=== PATIENT | female | born 1950 | race Caucasian/White ===

== ENCOUNTER → 2017-07-03 | Outpatient (CLI) | payer MEDICARE ==
[~2017-07-03] MED LIST: ARIP10TA2 PO; ATR20T PO; CIPR-17 PO; LVT.1T PO; METR500T PO; OXYC-12 PO; RLX60T PO; VENL150C53 PO; VNL75CCR PO
== END ==
LOC: RAD 09:32
PROVIDERS: ATTEND Internal Medicine
DX: Z12.31 Encounter for screening mammogram for malignant neoplasm of breast (principal)
CPT/HCPCS: 77067

== ENCOUNTER 2017-12-24 05:38 | Outpatient (CLI) | payer MEDICARE ==
[~2017-12-24] VITALS: Ht 165.1 cm; Wt 77.1 kg
[2017-12-24] MEDS ORDERED: LEVO100T7 PO (13:55)
[2017-12-24] MEDS ORDERED: CITA10TA7 PO (13:58)
[2017-12-24] MEDS ORDERED: LEVO5TAB28 PO (14:29)
[2017-12-24] MEDS ORDERED: CA C1TAB75 PO (14:29)
[2017-12-24] MEDS ORDERED: OMEG100032 PO (14:29)
[2017-12-24] MEDS ORDERED: FENO145T20 PO (14:29)
[2017-12-24] MEDS ORDERED: CHOL100045 PO (14:29)
== END 2017-12-24 14:31 ==
LOC: PREOP 05:38
PROVIDERS: ATTEND Specialist
DX: Z01.818 Encounter for other preprocedural examination (principal); H25.11 Age-related nuclear cataract, right eye

== ENCOUNTER 2017-12-28 07:59 | Day surgery (SDC) | payer MEDICARE ==
[~2017-12-28] VITALS: Ht 165.1 cm; Wt 77.1 kg
[~2017-12-28 07:59] MED LIST changes: +CA C1TAB75 PO; +CHOL100045 PO; +CITA10TA7 PO; +FENO145T20 PO; +LEVO100T7 PO; +LEVO5TAB28 PO; +OMEG100032 PO
[2017-12-28] MEDS ORDERED: POVIDONE (BETADINE) OPHTH SOLN 5% 30 ML OP ONE (08:15)
[2017-12-28] MEDS ORDERED: TIMOLOL MALEATE 0.5% 5 ML (TIMOPTIC) BTL OU PRN (08:15)
[2017-12-28] MEDS ORDERED: VANCOMYCIN/BSS (COMPOUNDED) 10 MG/ML SYR OP ONE (08:15)
[2017-12-28] MEDS ORDERED: LIDOCAINE PF 1% 2 ML AMP IR PRN (08:15)
[2017-12-28] MEDS ORDERED: EPINEPHrine INJECTION 1 MG/ML AMP INJ ONE (08:15)
[2017-12-28 08:20] VITALS: BP 105/72
[2017-12-28] MEDS: TETRACAINE 0.5% OPHTH SOLN 4 ML BTL (SINGLE DOSE ONLY) OU PRN ×4 (08:30→08:50)
[2017-12-28] MEDS: PHENYLEPHRINE 10% OPHTH (NEO-SYN) 5 ML BTL OU SCH ×3 (08:37→08:50)
[2017-12-28] MEDS: CYCLOPENTOLATE 1% (CYCLOGYL) 2 ML DROPS OP SCH ×3 (08:37→08:50)
[2017-12-28] MEDS ORDERED: MIDAZOLAM 2 MG/2 ML (VERSED) VIAL ONE (09:15)
--- NOTE | 2017-12-28 09:42 | Ophthalmology Operative Report ---
Cataract removal/placement IOL PREOPERATIVE DIAGNOSIS: Cataract Right Eye POSTOPERATIVE DIAGNOSIS: Cataract Right Eye PROCEDURE: Cataract removal and placement of posterior chamber implant, right eye SURGEON: Kaz Robles ANESTHESIA: Topical with sedation COMPLICATIONS: None ESTIMATED BLOOD LOSS: Minimal DESCRIPTION OF PROCEDURE: After proper informed consent was obtained, the patient, a 67 female, was taken to the Operating Room and the right eye was anesthetized with tetracaine. They right eye was then prepped and draped in the usual manner. A wire lid speculum was placed. A paracentesis was made at the left hand position. Preservative free lidocaine was injected into the anterior chamber followed by viscoelastic. A clear corneal incision was made in the temporal position. A capsulorrhexis was preformed and the central nuclear and cortical material were removed. The posterior capsule was polished and an Ihsan [id number] 21.0 IOL was placed into the capsular bag. The residual viscoelastic was aspirated and balanced saline solution was injected into the anterior chamber. 1.0 ml of Vancomycin (10mg/ 1.0ml) was injected into the anterior chamber. The would was checked and found to be water tight. The patient tolerated the procedure well without complications. KAZ ROBLES MD Dec 28, 2017 09:42
[2017-12-28 09:50] VITALS: BP 128/73
== END 2017-12-28 09:50 | disposition home or self-care (01) ==
LOC: SDC 07:59
PROVIDERS: ATTEND Specialist
DX: H26.9 Unspecified cataract (principal); E78.00 Pure hypercholesterolemia, unspecified; E07.9 Disorder of thyroid, unspecified; Z87.891 Personal history of nicotine dependence; Z79.899 Other long term (current) drug therapy

== ENCOUNTER 2018-01-04 13:00 | Outpatient (CLI) | payer MEDICARE | END 2018-01-04 15:03 | LOC: PREOP 13:00 | PROVIDERS: ATTEND Specialist | DX: Z01.818 Encounter for other preprocedural examination (principal); H25.89 Other age-related cataract ==

== ENCOUNTER 2018-01-11 07:05 | Day surgery (SDC) | payer MEDICARE ==
[~2018-01-11] VITALS: Ht 165.1 cm; Wt 77.1 kg
[2018-01-11] MEDS ORDERED: POVIDONE (BETADINE) OPHTH SOLN 5% 30 ML OP ONE (07:30)
[2018-01-11] MEDS ORDERED: VANCOMYCIN/BSS (COMPOUNDED) 10 MG/ML SYR OP ONE (07:30)
[2018-01-11] MEDS ORDERED: EPINEPHrine INJECTION 1 MG/ML AMP INJ ONE (07:30)
[2018-01-11] MEDS ORDERED: TIMOLOL MALEATE 0.5% 5 ML (TIMOPTIC) BTL OU PRN (07:30)
[2018-01-11] MEDS ORDERED: LIDOCAINE PF 1% 2 ML AMP IR PRN (07:30)
[2018-01-11 07:42] VITALS: BP 139/78
[2018-01-11] MEDS: CYCLOPENTOLATE 1% (CYCLOGYL) 2 ML DROPS OP SCH ×3 (07:43→07:56)
[2018-01-11] MEDS: PHENYLEPHRINE 10% OPHTH (NEO-SYN) 5 ML BTL OU SCH ×3 (07:43→07:56)
[2018-01-11] MEDS: TETRACAINE 0.5% OPHTH SOLN 4 ML BTL (SINGLE DOSE ONLY) OU PRN ×4 (07:43→08:25)
--- NOTE | 2018-01-11 08:16 | Progress Note-Pre Operative ---
Pre-Operative Progress Note H&P Reviewed The H&P was reviewed, patient examined and no changes noted. Date Seen by Provider: Jan 11, 2018 Time Seen by Provider: 08:15 Date H&P Reviewed: Jan 11, 2018 Time H&P Reviewed: 08:16 Pre-Operative Diagnosis: cataract CHERYLE ROBLES MD Jan 11, 2018 08:16
[2018-01-11] MEDS ORDERED: MIDAZOLAM 2 MG/2 ML (VERSED) VIAL ONE (08:21)
--- NOTE | 2018-01-11 08:41 | Ophthalmology Operative Report ---
Cataract removal/placement IOL PREOPERATIVE DIAGNOSIS: Cataract Left Eye POSTOPERATIVE DIAGNOSIS: Cataract Left Eye PROCEDURE: Cataract removal and placement of posterior chamber implant, left eye SURGEON: Kaz Robles ANESTHESIA: Topical with sedation COMPLICATIONS: None ESTIMATED BLOOD LOSS: Minimal DESCRIPTION OF PROCEDURE: After proper informed consent was obtained, the patient, a 67 female, was taken to the Operating Room and the left eye was anesthetized with tetracaine. They left eye was then prepped and draped in the usual manner. A wire lid speculum was placed. A paracentesis was made at the left hand position. Preservative free lidocaine was injected into the anterior chamber followed by viscoelastic. A clear corneal incision was made in the temporal position. A capsulorrhexis was preformed and the central nuclear and cortical material were removed. The posterior capsule was polished and Ihsan [id number] 21.5 IOL was placed into the capsular bag. The residual viscoelastic was aspirated and balanced saline solution was injected into the anterior chamber. 1.0 ml of Vancomycin (10mg/ 1.0ml) was injected into the anterior chamber. The would was checked and found to be water tight. The patient tolerated the procedure well without complications. KAZ ROBLES MD Jan 11, 2018 08:41
[2018-01-11 08:47] VITALS: BP 134/78
--- NOTE | 2018-01-11 15:08 | Anesthesia-General Post-Op ---
MAC Patient Condition Mental Status/LOC: Same as Preop Cardiovascular: Satisfactory Nausea/Vomiting: Absent Respiratory: Satisfactory Pain: Controlled Complications: Absent Post Op Complications Complications None Follow Up Care/Instructions Patient Instructions None needed. Anesthesiology Discharge Order Discharge Order Patient is doing well, no complaints, stable vital signs, no apparent adverse anesthesia problems. No complications reported per nursing. NICKI OROSCO CRNA Jan 11, 2018 15:08
== END 2018-01-11 08:55 | disposition home or self-care (01) ==
LOC: SDC 07:05
PROVIDERS: ATTEND Specialist
DX: H26.9 Unspecified cataract (principal); E03.9 Hypothyroidism, unspecified; E78.00 Pure hypercholesterolemia, unspecified; Z87.891 Personal history of nicotine dependence; Z79.899 Other long term (current) drug therapy

== ENCOUNTER 2018-01-15 05:56 | Outpatient (CLI) | payer MEDICARE ==
[~2018-01-15] VITALS: Ht 165.1 cm; Wt 81.6 kg
== END 2018-01-15 09:53 ==
LOC: PREOP 05:56
PROVIDERS: ATTEND Surgery
DX: Z01.818 Encounter for other preprocedural examination (principal); Z12.11 Encounter for screening for malignant neoplasm of colon

== ENCOUNTER → 2018-07-05 | Outpatient (CLI) | payer MEDICARE ==
[~2018-07-05] MED LIST changes: -FENO145T20 PO; +FENO145T37 PO
--- NOTE | 2018-07-05 11:59 | Diagnostic Imaging Report ---
INDICATION: Screening. TECHNIQUE: The current study was also evaluated with a Computer Aided Detection (CAD) system. 3D tomosynthesis was also performed and reviewed. FINDINGS: There are scattered fibroglandular densities bilaterally. There is an unchanged nodular density in the central aspect of the right breast, subareolar. There are a few benign-type calcifications. There is no new dominant mass, spiculated lesion or suspicious calcification identified. The skin, nipples and axillae are unremarkable. IMPRESSION: Category 2, benign. ACR BI-RADS Category 2: Benign findings. Result letter will be mailed to the patient. Note: At least 10% of breast cancer is not imaged by mammography. Dictated by: Dictated on workstation # [id number]
== END ==
LOC: RAD 09:26
PROVIDERS: ATTEND Nurse Practitioner
DX: Z12.31 Encounter for screening mammogram for malignant neoplasm of breast (principal); R92.8 Other abnormal and inconclusive findings on diagnostic imaging of breast
CPT/HCPCS: 77067

== ENCOUNTER → 2019-02-26 | Outpatient (CLI) | payer MEDICARE ==
--- NOTE | 2019-02-26 16:34 | Diagnostic Imaging Report ---
INDICATION: Lower respiratory infection. PA and lateral chest. FINDINGS: Heart size and pulmonary vascularity are normal. Lungs are clear. There are no effusions or pneumothoraces. IMPRESSION: Negative chest. Dictated by: Dictated on workstation # [id number]
[2019-02-26 16:43] LABS: HEMOGLOBIN 12.1 G/DL (11.5-16.0); MEAN PLATELET VOLUME 8.6 FL (7.4-10.4); RED CELL DISTRIBUTION WIDTH 13.9 % (10.0-14.5); WHITE BLOOD COUNT 4.5 10^3/uL (4.3-11.0)
[2019-02-26 17:02] LABS: ALBUMIN 4.2 GM/DL (3.2-4.5); BILIRUBIN,TOTAL 0.2 MG/DL (0.1-1.0); CALCIUM 9.4 MG/DL (8.5-10.1); CREATININE SERUM 1.28 MG/DL (0.60-1.30); POTASSIUM 3.9 MMOL/L (3.6-5.0); TOTAL PROTEIN 7.4 GM/DL (6.4-8.2)
== END ==
LOC: RAD 16:17
PROVIDERS: ATTEND Physician Assistant
DX: J22 Unspecified acute lower respiratory infection (principal)
CPT/HCPCS: 36415; 71046; 80053; 85027; 86141

== ENCOUNTER 2019-05-31 17:08 | Emergency (ER) | payer MEDICARE ==
[~2019-05-31] VITALS: Ht 165.1 cm; Wt 81.6 kg
[2019-05-31] MEDS ORDERED: RX-AMOX/CLAV. (AUGMENTIN) 500MG TAB PPK#2 PO STA (17:49)
[2019-05-31] MEDS ORDERED: AMOX-358 PO (17:53)
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
[2019-05-31] MEDS ORDERED: TETANUS,DIPTH,PERTUSS P/F (BOOSTRIX) 0.5 ML VIAL IM ONE (18:00)
[2019-05-31 18:26] VITALS: BP 148/63
--- OUTSIDE RECORDS SUMMARY | 2019-05-31 19:10 | XMS REPORT | Continuity of Care Document ---
Author Organization Unknown Address Unknown Phone Unavailable Allergies Active Description Code Type Severity Reaction Onset Reported/Identified Relationship to Patient Clinical Status Yes No Known Drug Allergies [id number] Drug Allergy Unknown N/A 05/22/2012 Medications There is no data. 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, RIGHT EYE 12/24/2017 CHERYLE ROBLES MD Ot Z01.818 ENCOUNTER FOR OTHER PREPROCEDURAL EXAMIN 12/26/2017 CHERYLE ROBLES MD Ot H25.11 AGE-RELATED NUCLEAR CATARACT, RIGHT EYE 12/26/2017 CHERYLE ROBLES MD Ot Z01.818 ENCOUNTER FOR OTHER PREPROCEDURAL EXAMIN 12/26/2017 DANDRE SOTELO MD Ot Z12.31 ENCNTR SCREEN MAMMOGRAM FOR MALIGNANT NE 12/28/2017 CHERYLE ROBLES MD Ot E07.9 DISORDER OF THYROID, UNSPECIFIED 12/28/2017 CHERYLE ROBLES MD Ot E78.00 PURE HYPERCHOLESTEROLEMIA, UNSPECIFIED 12/28/2017 CHERYLE ROBLES MD Ot H26.9 UNSPECIFIED CATARACT 12/28/2017 CHERYLE ROBLES MD Ot Z79.899 OTHER SURGICAL ASSISTANT CERTIFIED (CURRENT) DRUG THERAPY 12/28/2017 ANLIKER MD, CHERYLE L Ot Z87.891 PERSONAL HISTORY OF NICOTINE DEPENDENCE 01/01/2018 CHERYLE ROBLES MD Ot E07.9 DISORDER OF THYROID, UNSPECIFIED 01/01/2018 CHERYLE ROBLES MD Ot E78.00 PURE HYPERCHOLESTEROLEMIA, UNSPECIFIED 01/01/2018 CHERYLE ROBLES MD Ot H26.9 UNSPECIFIED CATARACT 01/01/2018 CHERYLE ROBLES MD Ot Z79.899 OTHER SURGICAL ASSISTANT CERTIFIED (CURRENT) DRUG THERAPY 01/01/2018 CHERYLE ROBLES MD Ot Z87.891 PERSONAL HISTORY OF NICOTINE DEPENDENCE 01/03/2018 CHERYLE ROBLES MD Ot E07.9 DISORDER OF THYROID, UNSPECIFIED 01/03/2018 CHERYLE ROBLES MD Ot E78.00 PURE HYPERCHOLESTEROLEMIA, UNSPECIFIED 01/03/2018 CHERYLE ROBLES MD Ot H26.9 UNSPECIFIED CATARACT 01/03/2018 CHERYLE ROBLES MD Ot Z79.899 OTHER CARE HOME (CURRENT) DRUG THERAPY 01/03/2018 CHERYLE ROBLES MD Ot Z87.891 PERSONAL HISTORY OF NICOTINE DEPENDENCE 01/04/2018 CHERYLE ROBLES MD L Ot H25.89 OTHER AGE-RELATED CATARACT 01/04/2018 CHERYLE ROBLES MD Ot Z01.818 ENCOUNTER FOR OTHER PREPROCEDURAL EXAMIN 01/07/2018 CHERYLE ROBLES MD Ot H25.89 OTHER AGE-RELATED CATARACT 01/07/2018 CHERYLE ROBLES MD Ot Z01.818 ENCOUNTER FOR OTHER PREPROCEDURAL EXAMIN 01/11/2018 CHERYLE ROBLES MD Ot E03.9 HYPOTHYROIDISM, UNSPECIFIED 01/11/2018 CHERYLE ROBLES MD Ot E78.00 PURE HYPERCHOLESTEROLEMIA, UNSPECIFIED 01/11/2018 CHERYLE ROBLES MD Ot H26.9 UNSPECIFIED CATARACT 01/11/2018 CHERYLE ROBLES MD Ot Z79.899 OTHER SURGICAL ASSISTANT CERTIFIED (CURRENT) DRUG THERAPY 01/11/2018 CHERYLE ROBLES MD Ot Z87.891 PERSONAL HISTORY OF NICOTINE DEPENDENCE 01/15/2018 CARMEN BROWN MD Ot Z01.818 ENCOUNTER FOR OTHER PREPROCEDURAL EXAMIN 01/15/2018 CARMEN BROWN MD Ot Z12.11 ENCOUNTER FOR SCREENING FOR MALIGNANT NE 01/16/2018 CARMEN BROWN MD Ot E03.9 HYPOTHYROIDISM, UNSPECIFIED 01/16/2018 CARMEN BROWN MD Ot E78.00 PURE HYPERCHOLESTEROLEMIA, UNSPECIFIED 01/16/2018 CARMEN BROWN MD Ot F32.9 MAJOR DEPRESSIVE DISORDER, SINGLE EPISOD 01/16/2018 CARMEN BROWN MD Ot F41.9 ANXIETY DISORDER, UNSPECIFIED 01/16/2018 CARMEN BROWN MD Ot K57.30 DVRTCLOS OF LG INT W/O PERFORATION OR AB 01/16/2018 CARMEN BROWN MD Ot K63.5 POLYP OF COLON 01/16/2018 CARMEN BROWN MD Ot K64.1 SECOND DEGREE HEMORRHOIDS 01/16/2018 CARMEN BROWN MD Ot Z12.11 ENCOUNTER FOR SCREENING FOR MALIGNANT NE 01/16/2018 CARMEN BROWN MD Ot Z79.899 OTHER CARE HOME (CURRENT) DRUG THERAPY 01/16/2018 CARMEN BROWN MD Ot Z87.891 PERSONAL HISTORY OF NICOTINE DEPENDENCE 01/22/2018 CARMEN BROWN MD Ot E03.9 HYPOTHYROIDISM, UNSPECIFIED 01/22/2018 CARMEN BROWN MD Ot E78.00 PURE HYPERCHOLESTEROLEMIA, UNSPECIFIED 01/22/2018 CARMEN BROWN MD Ot F32.9 MAJOR DEPRESSIVE DISORDER, SINGLE EPISOD 01/22/2018 CARMEN BROWN MD Ot F41.9 ANXIETY DISORDER, UNSPECIFIED 01/22/2018 CARMEN BROWN MD Ot K57.30 DVRTCLOS OF LG INT W/O PERFORATION OR AB 01/22/2018 CARMEN BROWN MD Ot K63.5 POLYP OF COLON 01/22/2018 CARMEN BROWN MD Ot K64.1 SECOND DEGREE HEMORRHOIDS 01/22/2018 CARMEN BROWN MD Ot Z12.11 ENCOUNTER FOR SCREENING FOR MALIGNANT NE 01/22/2018 CARMEN BROWN MD Ot Z79.899 OTHER SURGICAL ASSISTANT CERTIFIED (CURRENT) DRUG THERAPY 01/22/2018 CARMEN BROWN MD Ot Z87.891 PERSONAL HISTORY OF NICOTINE DEPENDENCE 07/05/2018 DEEPAK MD, DANDRE D Ot Z12.31 ENCNTR SCREEN MAMMOGRAM FOR MALIGNANT NE 07/05/2018 STEVEN XIEN Dayron COPY COORDINATOR Ot Z12.31 ENCNTR SCREEN MAMMOGRAM FOR MALIGNANT NE 07/05/2018 DANDRE SOTELO MD Ot Z12.31 ENCNTR SCREEN MAMMOGRAM FOR MALIGNANT NE 07/05/2018 STEVEN XIEClaritza Padgett COPY COORDINATOR Ot Z12.31 ENCNTR SCREEN MAMMOGRAM FOR MALIGNANT NE 07/08/2018 STEVEN XIEN Dayron COPY COORDINATOR Ot R92.8 OTH ABN AND INCONCLUSIVE FINDINGS ON DX 07/08/2018 STEVEN XIEN R COPY COORDINATOR Ot Z12.31 ENCNTR SCREEN MAMMOGRAM FOR MALIGNANT NE 07/11/2018 STEVEN XIEN R COPY COORDINATOR Ot R92.8 OTH ABN AND INCONCLUSIVE FINDINGS ON DX 07/11/2018 STEVEN XIEN R COPY COORDINATOR Ot Z12.31 ENCNTR SCREEN MAMMOGRAM FOR MALIGNANT NE 07/26/2018 STEVEN XIEClaritza Padgett COPY COORDINATOR Ot R92.8 OTH ABN AND INCONCLUSIVE FINDINGS ON DX 07/26/2018 STEVEN XIEClaritza Padgett COPY COORDINATOR Ot Z12.31 ENCNTR SCREEN MAMMOGRAM FOR MALIGNANT NE 02/26/2019 NOEMÍ FANG Ot J22 UNSPECIFIED ACUTE LOWER RESPIRATORY INFE 03/18/2019 NOEMÍ FANG Ot J22 UNSPECIFIED ACUTE LOWER RESPIRATORY INFE Procedures Code Description Performed By Performed On 51.23 LAPAROSCOPIC CHOLECYSTECTOMY 05/23/2012 Results Test Result Range Automated blood complete blood count (hemogram) panel - 02/26/19 16:36 Blood leukocytes automated count (number/volume) 4.5 10*3/uL 4.3-11.0 Blood erythrocytes automated count (number/volume) 4.31 10*6/uL 4.35-5.85 Venous blood hemoglobin measurement (mass/volume) 12.1 g/dL 11.5-16.0 Blood hematocrit (volume fraction) 38 % 35-52 Automated erythrocyte mean corpuscular volume 89 [foz_us] 80-99 Automated erythrocyte mean corpuscular hemoglobin (mass per erythrocyte) 28 pg 25-34 Automated erythrocyte mean corpuscular hemoglobin concentration measurement (mass/volume) 32 g/dL 32-36 Automated erythrocyte distribution width ratio 13.9 % 10.0- 14.5 Automated blood platelet count (count/volume) 318 10*3/uL 130-400 Automated blood platelet mean volume measurement 8.6 [foz_us] 7.4-10.4 Comprehensive metabolic panel - 02/26/19 16:36 Serum or plasma sodium measurement (moles/volume) 142 mmol/L 135-145 Serum or plasma potassium measurement (moles/volume) 3.9 mmol/L 3.6-5.0 Serum or plasma chloride measurement (moles/volume) 109 mmol/L 98-107 Carbon dioxide 23 mmol/L 21-32 Serum or plasma anion gap determination (moles/volume) 10 mmol/L 5-14 Serum or plasma urea nitrogen measurement (mass/volume) 18 mg/dL 7-18 Serum or plasma creatinine measurement (mass/volume) 1.28 mg/dL 0.60-1.30 Serum or plasma urea nitrogen/creatinine mass ratio 14 NRG Serum or plasma creatinine measurement with calculation of estimated glomerular filtration rate 42 NRG Serum or plasma glucose measurement (mass/volume) 151 mg/dL 70-105 Serum or plasma calcium measurement (mass/volume) 9.4 mg/dL 8.5-10.1 Serum or plasma total bilirubin measurement (mass/volume) 0.2 mg/dL 0.1-1.0 Serum or plasma alkaline phosphatase measurement (enzymatic activity/volume) 35 U/L 40-136 Serum or plasma aspartate aminotransferase measurement (enzymatic activity/volume) 22 U/L 5-34 Serum or plasma alanine aminotransferase measurement (enzymatic activity/volume) 31 U/L 0-55 Serum or plasma protein measurement (mass/volume) 7.4 g/dL 6.4-8.2 Serum or plasma albumin measurement (mass/volume) 4.2 g/dL 3.2-4.5 CALCIUM CORRECTED 9.2 mg/dL 8.5-10.1 Serum or plasma C reactive protein measurement (mass/volume) - 02/26/19 16:36 Serum or plasma C reactive protein measurement (mass/volume) 0.79 mg/dL 0.00-0.50 Encounters ACCT No. Visit Date/Time Discharge Status Pt. Type Provider Facility Loc./Unit Complaint [id number] 02/26/2019 16:17:00 02/26/2019 23:59:59 CLS Outpatient NOEMÍ FANG [facility] RAD COUGH,WHEEZING [id number] 07/05/2018 09:26:00 07/05/2018 23:59:59 CLS Outpatient SARAH XIE APRN [facility] RAD SCREENING [id number] 01/16/2018 10:38:00 01/16/2018 15:00:00 DIS Outpatient CARMEN BROWN MD [facility] ENDO SCREENING [id number] 01/15/2018 05:56:00 01/15/2018 09:53:00 DIS Outpatient CARMEN BRONW MD [facility] PREOP COLONOSCOPY [id number] 01/11/2018 07:05:00 01/11/2018 08:55:00 DIS Outpatient CHERYLE ROBLES MD [facility] SDC CATARACT LEFT EYE [id number] 01/04/2018 13:00:00 01/04/2018 15:03:00 DIS Outpatient CHERYLE ROBLES MD [facility] PREOP CATARACT LEFT EYE [id number] 12/28/2017 07:59:00 12/28/2017 09:50:00 DIS Outpatient CHERYLE ROBLES MD [facility] SDC CATARACT RIGHT EYE [id number] 12/24/2017 05:38:00 12/24/2017 14:31:00 DIS Outpatient CHERYLE ROBLES MD [facility] PREOP CATARACT RIGHT [id number] 07/03/2017 09:32:00 07/03/2017 23:59:59 CLS Outpatient DANDRE SOTELO MD [facility] RAD SCREENING [id number] 05/22/2012 13:44:00 Document Registration
== END 2019-05-31 18:27 | disposition home or self-care (01) ==
LOC: EDUNIT# 17:08 → ER 17:10
DX: S61.032A Puncture wound without foreign body of left thumb without damage to nail, initial encounter (principal); L03.012 Cellulitis of left finger; F32.9 Major depressive disorder, single episode, unspecified; F41.9 Anxiety disorder, unspecified; E78.00 Pure hypercholesterolemia, unspecified; Z23 Encounter for immunization; W26.8XXA Contact with other sharp object(s), not elsewhere classified, initial encounter
CPT/HCPCS: 90715; 99284

== ENCOUNTER → 2019-07-08 | Outpatient (CLI) | payer MEDICARE ==
[~2019-07-08] MED LIST changes: +AMOX-358 PO
--- NOTE | 2019-07-08 13:17 | Diagnostic Imaging Report ---
INDICATION: Routine screening. COMPARISON: 07/05/2018 and 07/03/2017. TECHNIQUE: 2D and 3D bilateral screening mammography was performed with CAD. FINDINGS: Scattered fibroglandular densities are identified bilaterally. Benign-appearing nodular densities in the right breast appear stable. No dominant mass or malignant appearing microcalcifications are seen. The axillae are unremarkable. IMPRESSION: No mammographic features suspicious for malignancy are identified. ACR BI-RADS Category 2: Benign findings. Result letter will be mailed to the patient. Note: At least 10% of breast cancer is not imaged by mammography. Dictated by: Dictated on workstation # [id number]
== END ==
LOC: RAD 10:19
PROVIDERS: ATTEND Physician Assistant
DX: Z12.31 Encounter for screening mammogram for malignant neoplasm of breast (principal)
CPT/HCPCS: 77067

== ENCOUNTER → 2021-07-25 | Outpatient (CLI) | payer MEDICARE ==
[~2021-07-25] MED LIST changes: +FENO145T26 PO; -FENO145T37 PO
--- NOTE | 2021-07-26 10:06 | Diagnostic Imaging Report ---
Indication: Screening. The current study was also evaluated with a Computer Aided Detection (CAD) system. 3-D Tomographic imaging was also performed. Comparison made with prior examination from 07/09/2020, 07/08/2019 and 07/05/2018. FINDINGS: There are scattered fibroglandular densities. There is an unchanged nodular density in the lateral right breast. There is unchanged tiny nodular density in the central left breast. There are benign type calcifications. There is no new dominant mass, spiculated lesion or suspicious calcifications identified. Skin, nipples and axilla are unremarkable. IMPRESSION: Category 2 benign findings ACR BI-RADS Category 2: Benign findings. Result letter will be mailed to the patient. Note: At least 10% of breast cancer is not imaged by mammography. Dictated by: Dictated on workstation # [id number]
== END ==
LOC: RAD 15:01
PROVIDERS: ATTEND Internal Medicine
DX: Z12.31 Encounter for screening mammogram for malignant neoplasm of breast (principal)
CPT/HCPCS: 77063; 77067

== ENCOUNTER → 2021-09-27 | Outpatient (CLI) | payer MEDICARE ==
[~2021-09-27] MED LIST changes: -CITA10TA7 PO; +CITA10TA9 PO
--- NOTE | 2021-09-27 16:04 | Diagnostic Imaging Report ---
INDICATION: 71-year-old female, postmenopausal. Screening for osteoporosis. COMPARISON: None. FINDINGS: AP Spine L1-L4: [BMD (g/cm2): 1.094] [T-Score: -0.9] [Z-Score: 0.2] [BMD Previous: na] [BMD % Change: na] LT Hip Neck: [BMD (g/cm2): 0.758] [T-Score: -2.0] [Z-Score: -0.7] LT Hip Total: [BMD (g/cm2):0.822] [T-Score:-1.5] [Z-Score: -0.4] [BMD Previous: na] [BMD % Change: na] RT Hip Neck: [BMD (g/cm2):0.697] [T-Score:-2.5] [Z-Score:-1.1] RT Hip Total: [BMD (g/cm2):0.813] [T-score:-1.5] [Z-Score:-0.5] [BMD Previous:na] [BMD % Change:na] *Indicates significant change from prior examination based on 95% confidence level. World Health Organization criteria for BMD interpretation classify patients as Normal (T-score at or above -1.0), Osteopenic (T-score between -1.0 and -2.5) or Osteoporotic (T-score at or below -2.5). LIMITATIONS AND MODIFICATION: None. FRACTURE RISK (FRAX SCORE): The ten year probability of (%): Major Osteoporotic Fracture: [14.3] Hip Fracture: [3.6] IMPRESSION: 1. Osteoporosis. 2. Baseline examination. 3. See below National Osteoporosis Foundation guidelines on when to potentially initiate pharmacologic therapy. Based on the National Osteoporosis Foundation Guidelines, pharmacologic treatment should be initiated in any of the following, unless clinical conditions suggest otherwise: * Any patient with prior fragility fracture of the hip or vertebrae. A spine fracture indicates 5X risk for subsequent spine fracture and 2X risk for subsequent hip fracture. * Osteoporosis (T-score <-2.5). * Postmenopausal women and men age 50 and older with low bone mass/osteopenia (T-score between -1.0 and -2.5) by DXA and 10-year major osteoporotic fracture greater than 20% or a 10-year probability of hip fracture greater than 3%. These fracture risks are supplied above in the FRAX score, if applicable. * Clinician judgement and/or patient preferences may indicate treatment for people with 10-year fracture probabilities above or below these levels. Dictated by: Dictated on workstation # [id number]
== END ==
LOC: RAD 14:00
PROVIDERS: ATTEND Internal Medicine
DX: Z13.820 Encounter for screening for osteoporosis (principal); M81.0 Age-related osteoporosis without current pathological fracture; Z78.0 Asymptomatic menopausal state
CPT/HCPCS: 77080

== ENCOUNTER → 2022-08-01 | Outpatient (CLI) | payer MEDICARE ==
--- NOTE | 2022-08-01 16:27 | Diagnostic Imaging Report ---
Indication: Routine screening. Comparison is made with prior mammograms 07/25/2021 and 07/09/2020. 2-D and 3-D bilateral screening mammography was performed with CAD. Scattered fibroglandular densities are identified bilaterally. Nodular densities in both breasts appear stable. No new mass or malignant-appearing microcalcifications are seen. Axillae are unremarkable. IMPRESSION: BI-RADS Category 2 No mammographic features suspicious for malignancy are identified. ACR BI-RADS Category 2: Benign findings. Result letter will be mailed to the patient. Note: At least 10% of breast cancer is not imaged by mammography. Dictated by: Dictated on workstation # [id number]
== END ==
LOC: RAD 14:04
PROVIDERS: ATTEND Nurse Practitioner Family
DX: Z12.31 Encounter for screening mammogram for malignant neoplasm of breast (principal)
CPT/HCPCS: 77063; 77067